=== PATIENT | female | born 1940 | race Caucasian/White ===

== ENCOUNTER 2023-11-05 08:43 | Emergency (ER) | payer MEDICARE, SELFPAY ==
--- NOTE | ~2023-11-05 | XR_ITS ---
EXAMINATION: XR ankle RT min 3V DATE: 11/05/2023 09:21 INDICATION: Right ankle pain and swelling. TECHNIQUE: 4 views of right ankle were obtained. COMPARISON: None. FINDINGS: Bone alignment is normal. No fracture. There is diffuse osteopenia. There is mild osteoarth ritis of talonavicular joint. There are enthesophytes at the posterior and plantar aspects of calcane al tuberosity. IMPRESSION: 1. No fracture. Reviewed, dictated and finalized at location A. IMPRESSION: 1. No fracture.
--- NOTE | ~2023-11-05 | CT_ITS ---
EXAMINATION: CT knee RT wo con DATE: 11/05/2023 09:46 INDICATION: Right knee pain. TECHNIQUE: Computed tomography (CT) of the right knee was performed without intravenous contrast. Aut omated exposure control and iterative reconstruction technique were employed. The dose-length product was 497.38 mGy-cm. COMPARISON: Right knee radiographs 11/05/2023 FINDINGS: There is lateral subluxation of patella. No fracture. There is severe osteoarthritis of pat ellofemoral compartment and mild osteoarthritis of medial and lateral compartments. There is a small knee joint effusion. IMPRESSION: 1. Severe right knee osteoarthritis. 2. Small right knee joint effusion. Reviewed, dictated and finalized at location A.
--- NOTE | ~2023-11-05 | XR_ITS ---
EXAMINATION: XR knee RT 3V DATE: 11/05/2023 09:21 INDICATION: Right knee swelling. TECHNIQUE: 3 views of right knee on 4 radiographs were obtained. COMPARISON: None. FINDINGS: Bone alignment is normal. No fracture. There is mild osteoarthritis of medial and lateral c ompartments and severe osteoarthritis of patellofemoral compartment. No knee joint effusion. IMPRESSION: 1. Severe right knee osteoarthritis. Reviewed, dictated and finalized at location A.
[2023-11-05 08:48] VITALS: BP 145/58; PULSE 49; RESP 16; TEMP 36.9; O2SAT 97
--- NOTE | 2023-11-05 08:58 | ED.GENADULT ---
HPI - General Adult General Chief complaint: Extremity Injury, Lower Stated complaint: lower extermity injury Time Seen by Provider: 11/05/23 08:45 History of Present Illness HPI narrative: 82-year-old female presents emergency department for evaluation for right knee pain. Patient was attempting to get in to a pickup truck yesterday, it was raining and patient has a special orthopedic shoe she wears on her right foot, this you does not have very much traction and suspect that this led to the fall. Patient hyperflexed her knee and her body weight came down on that leg. Patient does complain of some right ankle pain but primarily right knee pain. Patient denies any pain the hip. Patient denies striking head denies any loss of consciousness. Related Data Home Medications Medication Instructions Recorded Confirmed Saccharomyces boulardii 250 mg 11/05/23 11/05/23 capsule (Florastor) alprazolam 0.5 mg tablet 0.5 mg PO TID 11/05/23 11/05/23 cyanocobalamin (vitamin B-12) 3,000 mcg PO DAILY 11/05/23 11/05/23 3,000 mcg capsule furosemide 40 mg tablet (Lasix) 40 mg PO DAILY 11/05/23 11/05/23 hydralazine 10 mg tablet mg 11/05/23 lisinopril 30 mg tablet 30 mg PO DAILY 11/05/23 11/05/23 lutein 10 mg tablet 10 mg PO DAILY 11/05/23 11/05/23 metoprolol tartrate 50 mg tablet 50 mg PO BID 11/05/23 11/05/23 omeprazole 40 mg capsule,delayed 40 mg PO DAILY 11/05/23 11/05/23 release paroxetine HCl 40 mg tablet 40 mg PO QAM 11/05/23 11/05/23 potassium chloride 20 mEq 20 meq PO BID 11/05/23 11/05/23 tablet,extended release warfarin 11/05/23 Allergies Allergy/AdvReac Type Severity Reaction Status Date / Time acetaminophen Allergy Difficulty Verified 11/05/23 09:14 [From Panlor SS] Breathing bacitracin Allergy Rash Verified 11/05/23 09:14 [From Neosporin ([id number])] caffeine [From Panlor SS] Allergy Difficulty Verified 11/05/23 09:14 Breathing cetirizine [From Zyrtec] Allergy Rash Verified 11/05/23 09:14 darifenacin [From Enablex] Allergy Unknown Verified 11/05/23 09:14 dihydrocodeine Allergy Difficulty Verified 11/05/23 09:14 [From Panlor SS] Breathing doxycycline Allergy Difficulty Verified 11/05/23 09:14 Breathing duloxetine [From Cymbalta] Allergy Unknown Verified 11/05/23 09:14 fexofenadine [From Sun-D] Allergy Rash Verified 11/05/23 09:14 fluticasone Allergy Difficulty Verified 11/05/23 09:14 [From Advair Diskus] Breathing gabapentin Allergy Difficulty Verified 11/05/23 09:14 Breathing loratadine [From Claritin] Allergy Rash Verified 11/05/23 09:14 mirtazapine [From Remeron] Allergy Difficulty Verified 11/05/23 09:14 Breathing morphine Allergy Difficulty Verified 11/05/23 09:14 Breathing naproxen [From Aleve] Allergy Rash Verified 11/05/23 09:14 neomycin Allergy Rash Verified 11/05/23 09:14 [From Neosporin ([id number])] Penicillins Allergy Difficulty Verified 11/05/23 09:14 Breathing polymyxin B Allergy Rash Verified 11/05/23 09:14 [From Neosporin ([id number])] pseudoephedrine Allergy Rash Verified 11/05/23 09:14 [From Sun-D] salmeterol Allergy Difficulty Verified 11/05/23 09:14 [From Advair Diskus] Breathing Sulfa (Sulfonamide Allergy Difficulty Verified 11/05/23 09:14 Antibiotics) Breathing valdecoxib [From Bextra] Allergy Difficulty Verified 11/05/23 09:14 Breathing adhesive tape AdvReac Rash Verified 11/05/23 09:14 amlodipine [From Norvasc] AdvReac Confusion Verified 11/05/23 09:14 diphenhydramine AdvReac Drowsy Verified 11/05/23 09:14 [From Benadryl] meclizine [From Antivert] AdvReac Drowsy Verified 11/05/23 09:14 meperidine [From Demerol] AdvReac Confusion Verified 11/05/23 09:14 Review of Systems Review of Systems: All systems reviewed & are unremarkable except as noted in HPI and below Exam Narrative: APPEARANCE: Well appearing, no pain, no distress, well-nourished. HEA
[2023-11-05 09:31] VITALS: BP 129/48; PULSE 48; RESP 19; O2SAT 97
[2023-11-05 10:15] VITALS: BP 129/81; PULSE 62; RESP 19; O2SAT 98
== END 2023-11-05 10:17 | disposition home or self-care (01) ==
PROVIDERS: Emergency Provider Emergency Medicine; PCP Family Medicine
DX: S89.91XA Unspecified injury of right lower leg, initial encounter (principal); M17.11 Unilateral primary osteoarthritis, right knee; Z79.01 Long term (current) use of anticoagulants; W01.0XXA Fall on same level from slipping, tripping and stumbling without subsequent striking against object, initial encounter; X50.9XXA Other and unspecified overexertion or strenuous movements or postures, initial encounter
CPT/HCPCS: 73562; 73610; 73700; 99284

== ENCOUNTER 2024-03-27 07:17 | Outpatient (RCR) | payer MEDICARE, SELFPAY ==
[2024-01-02 11:36] VITALS: BMI 23.2
--- NOTE | 2024-02-21 11:22 | PCWOUND ---
WOCN NOTE Patients son called to cancel for today due to patient illness, He will call back to reschedule
== END 2024-04-01 23:59 | disposition home or self-care (01) ==
LOC: ANHWOC 07:17
PROVIDERS: PCP Family Medicine; Visit Provider Family Medicine
DX: S91.101D Unspecified open wound of right great toe without damage to nail, subsequent encounter (principal)
CPT/HCPCS: 99212; 99213; 99215; G0463

== ENCOUNTER 2024-08-13 07:13 | Outpatient (RCR) | payer MEDICARE, BC, SELFPAY ==
--- NOTE | 2024-08-20 10:04 | PCWOUND ---
WOCN NOTE Patient cancelled for today due to weather. Rescheduled for next week.
== END 2024-08-26 23:59 | disposition home or self-care (01) ==
LOC: ANHWOC 07:13
PROVIDERS: PCP Family Medicine; Visit Provider Family Medicine
DX: L97.509 Non-pressure chronic ulcer of other part of unspecified foot with unspecified severity (principal)
CPT/HCPCS: 99213; 99214; A9270; G0463

== ENCOUNTER 2024-11-12 07:33 | Outpatient (RCR) | payer MEDICARE, SELFPAY | END 2024-11-25 23:59 | disposition home or self-care (01) | LOC: ANHWOC 07:33 | PROVIDERS: PCP Family Medicine; Visit Provider Family Medicine | DX: L97.509 Non-pressure chronic ulcer of other part of unspecified foot with unspecified severity (principal) | CPT/HCPCS: 99213; A9270; G0463 ==

== ENCOUNTER 2024-12-02 21:46 | Emergency (ER) | payer MEDICARE, SELFPAY ==
--- NOTE | ~2024-12-02 | CT_ITS ---
EXAMINATION: CT cervical spine wo con DATE: 12/02/2024 22:53 INDICATION: FALL TECHNIQUE: Computed tomography (CT) of the cervical spine was performed without intravenous contrast. Automated exposure control and iterative reconstruction technique were employed. The dose-length pro duct was 121.01 mGy-cm. COMPARISON: None. FINDINGS: Vertebral Body Alignment: Intact. Craniocervical and atlantoaxial alignment: Moderate degenerative change. Alignment intact. Osseous structures/fracture: No evidence of a lytic or blastic process in the visualized spine. No e vidence of acute fracture. Cervical soft tissues: The paraspinal soft tissues planes are maintained. 10 x 6 x 9 mm ovoid density in the supraglottic airway, just inferior to the left vallecula, to the left of midline and above th e level of the cords, measuring approximately 80 Hounsfield units, which is greater than typical soft tissue. Degenerative changes: Multilevel degenerative disc disease and facet arthropathy. No severe central c anal or neural foraminal narrowing. IMPRESSION: No acute fracture or traumatic malalignment in the cervical spine. 10 mm supraglottic airway nodule, may represent a polyp, ingested material, or foreign body granuloma , recommend ENT referral. Reviewed, dictated and finalized at location K. IMPRESSION: No acute fracture or traumatic malalignment in the cervical spine. 10 mm supraglottic airway nodule, may represent a polyp, ingested material, or foreign body granuloma, recommend ENT referral.
--- NOTE | ~2024-12-02 | CT_ITS ---
EXAMINATION: CT brain wo con DATE: 12/02/2024 22:52 INDICATION: FALL . TECHNIQUE: Computed tomography (CT) of the head was performed without intravenous contrast. The mA wa s adjusted according to patient size. Iterative reconstruction technique was employed. The dose-lengt h product was 605.33 mGy-cm. COMPARISON: None. FINDINGS: No acute intracranial hemorrhage or extra-axial fluid collection. No hydrocephalus, mass, or herniation. No acute ischemic infarct. Unremarkable dural venous sinus attenuation. No acute osseous abnormality. Small right parietal scalp hematoma. Trace left mastoid fluid, the remaining aerated spaces are clear. Moderate atrophy and chronic white matter change. Atherosclerotic intracranial calcification. Bilater al lens replacements. IMPRESSION: No acute intracranial process. Reviewed, dictated and finalized at location K.
--- OUTSIDE RECORDS SUMMARY | 2024-12-02 21:49 | XMS_ITS | Patient Health Record ---
Author Organization [facility] Address [address] [address] [address] [place] [address] Care Team Providers Care Upholstered Goods Crafter Name Role Phone LIBERTAD BENTLEY Unavailable [phone] Reason For Referral No Information Plan Of Treatment No Information Insurance Providers Payer Name Payer Address Payer Phone Subscriber Number Group Number Insured Name Patient Relationship to Insured Coverage Start Date Coverage End Date [place]IC[place] [address] [address] [place], [place] [id number] Desiree Geller Self - patient is the insured 2 [employer] [place] [id number] [employer] [place], [place] [id number] PLAN F Desiree Geller Self - patient is the insured 0
--- OUTSIDE RECORDS SUMMARY | 2024-12-02 21:49 | XMS_ITS | CONTINUITY OF CARE DOCUMENT ---
Author Name winnie zhou Address Unknown Organization [facility] Address [address] [place] [address] [address] [place] [address] Phone [phone] Care Team Providers Care Sales Effectiveness Manager Name Role Phone Yonas HUANG, Mundo Fraser Unavailable [phone] Sally Watts MD Unavailable Sally Watts MD Unavailable [phone] INSURANCE PROVIDERS Payer name Policy type / Coverage type [place] red libertarian [employer] [place] [id number] [place] MEDICARE PART B Medicare [id number]
--- OUTSIDE RECORDS SUMMARY | 2024-12-02 21:49 | XMS_ITS | Patient Health Record ---
Author Organization [facility] Address [address] [id number] Care Team Providers Care Precision Assembly Inspector Name Role Phone Sally Watts Primary Care Provider UnavailOrlando Mcgowan Unavailable [phone] ALLERGIES Allergen (clinical drug ingredient) Drug/Non Drug Allergy documented on EMR Reaction Allergy Type Onset Date Status Tape (uncoded) Unknown Allergy Activ e mirtazapine Mirtazapine Unknown Drug Allergy Act karen Substance with sulfonamide structure and antibacterial mechanism of action (substance) sulfa drugs (uncoded) Unknown Allergy Active meperidine Meperidine HCl Unknown Drug Allergy A ctive Substance with penicillin structure and antibacterial mechanism of action (substance) penicillins (uncoded) Unknown Allergy Active meclizine Meclizine HCl Unknown Drug Allergy Act karen Vaccine product containing Influenza virus antigen (medicinal product) influenza virus vaccine (uncoded) Unknown Allergy Active loratadine Loratadine Unknown Drug Allergy Activ e bextrim (uncoded) Unknown Allergy Ac tive gabapentin Gabapentin Unknown Drug Allergy Activ e fluticasone / salmeterol Fluticasone-Salmeterol Unknown Drug Allergy Activ e fexofenadine Fexofenadine HCl Unknown Drug Allergy Active Enablex Unknown Drug Allergy Active doxycycline Doxycycline Unknown Drug Allergy Act karen diphenhydramine DiphenhydrAMINE HCl Unknown Drug Allergy Active acetaminophen Tylenol Unknown Drug Allergy Act karen duloxetine Cymbalta Unknown Drug Allergy Active cetirizine Cetirizine HCl Unknown Drug Allergy A ctive sulfamethoxazole / trimethoprim Sulfamethoxazole-Trime thoprim Unknown Drug Allergy Active sulfamethoxazole / trimethoprim Bactrim Unknown Drug Allergy Active Panlor SS Unknown Drug Allergy Active meclizine Antivert Unknown Drug Allergy Active amlodipine Norvasc Unknown Drug Allergy Active amlodipine Amlodipine Besylate Unknown Drug Allergy Active Neosporin Unknown Drug Allergy Active amiodarone Amiodarone HCl Unknown Drug Allergy A ctive naproxen Naproxen Unknown Drug Allergy Active Aleve Unknown Drug Allergy Active morphine Morphine Sulfate Unknown Drug Allergy Active REASON FOR REFERRAL No Information MEDICATIONS Medication SIG (Take, Route, Frequency, Duration) Notes Start Date End Date Status HYDROcodone-Acetaminophen 10-300 MG 1 tablet as needed Orally every 6 hrs Active Saccharomyces boulardii 250 MG 1 capsule Orally Twice a day Active PARoxetine HCl 40 MG 1 tablet in the mor eusebio Orally Once a day Active PreserVision AREDS 2 - Orally Active Metoprolol Succinate ER 50 MG 2 tablet Orally Once a day Active Cyanocobalamin 1000 MCG 1 tablet Orally Once a day Active Clindamycin HCl 150 MG 3 capsules Orally every 6 hrs Active PriLOSEC 20 MG 1 capsule Orally Onc e a day Active amLODIPine Besylate 10 MG 1 tablet Orall y Once a day Active Warfarin Sodium 5 MG 1 tablet Orally Onc e a day Active ALPRAZolam 1 MG 1/2 tablet at 8:00am ; 1 tablet at 4pm and 9pm Orally three times a day Active Sodium Bicarbonate 650 MG Orally three times a day Active hydrALAZINE HCl 50 MG 2 tablet with food Orally every 8 hours Active Fluticasone Propionate 50 MCG/ACT 1 spray in each nostril Nasally Once a day Active Ferrous Sulfate 325 (65 Fe) MG 1 tablet Orally Once a day Active IMMUNIZATIONS Vaccine Route Administration Date Status Comme nts Influenza Unknown 05/30/2017 Refused SOCIAL HISTORY Tobacco Use: Social History Observation Description Date Details (start date - stop date) Current Smoker NA - NA Sex Assigned At : Social History Observation Description Sex Assigned At Unknown Tobacco Use/Smoking Question Answer Notes You are a current smoker PROBLEMS Problem Type ICD Code Onset Dates Problem Status W/U Status Risk SNOMED Code Notes Problem Essential (primary) hypertension (I10) Active confirmed Essential hypertension (60440030) Problem Chronic kidney disease, stage 3 (moderate) (N18.3) Active confirmed Chronic kidney disease stage 3 (304339648) PLAN OF TREATMENT Future Test Test Name Order Date PTH, Intact 05/24/2017 RENAL PANEL 05/24/2017 Vitamin D, 25-Hydroxy 05/24/2017 CBC without Differential 05/24/2017 Iron and TIBC 08/30/2017 Ferritin, Serum 08/30/2017 PTH, Intact 08/30/2017 RENAL PANEL 08/30/2017 Vitamin D, 25-Hydroxy 08/30/2017 URINE PROTEIN W/CREAT RATIO 08/30/2017 CBC without Differential 08/30/2017 PTH, Intact 11/27/2017 RENAL PANEL 11/27/2017 Vitamin D, 25-Hydroxy 11/27/2017 URINE PROTEIN W/CREAT RATIO 11/27/2017 CBC without Differential 11/27/2017 Insurance Providers Payer Name Payer Address Payer Phone Subscriber Number Group Number Insured Name Patient Relationship to Insured Coverage Start Date Coverage End Date Medicare Part B [address] [place] [id number] Desiree Geller Self - patient is the insured [place] Medicare Supplement [address] [address] MEDICARE SUPPLEMENT [place] [address] [id number] Desiree Geller Self - patient is the insured MEDICAL (GENERAL) HISTORY Medical History History ICD Code neuropathy atrial fibrillation congestive heart failure hypertension osteoarthritis, depression anxiety 04/28/2017-XR Chest 1 View: Impression: Mild Cardiomegaly. No active pulmonary disease 05/04/2017: US Retroperitone al complete: Impression: Unremarkable renal ultrasound 05/05/2017: XR Chest 1 View: Impression: Cardiomegaly and some increased initial markings perhaps more prominent than previous raising a question of mild or early congestive heart failure without consolidation or definite pneumonia. Follow-up may be considered if symptoms persist. 05/05/2017: US Art/Vein ABD/ Pelvis/Scrotal: Impression: Limitation of evaluating for renal artery stenosis as the proximal origin identified but no evidence of vascular occlusion. 05/05/2017: Echocardiogram: summary: LV septal hypokinesis with overall EF 50%. Normal diastolic function. Mild mitral and tricuspid regurgitation. Mild pulmonary hypertension with estimated RVSP 42mmHg. 05/08/2017: XR Chest 1 View: Impression: Worsening diffuse infiltrates more confluent in the right apex. 05/08/2017: XR Chest 1 View: Impression: Interval right jugular double lumen central venous catheter placement without pneumothorax. Persistent right upper lobe infiltrate and pulmonary edema with bibasal atelectasis and pleural effusions, relatively unchanged. 05/05/2017: XR Chest 1 View: Impression: Significant worsening of the lungs overall appearance suggestive of congestive failure 05/12/2017: XR Chest 1 View: Impression: Pulmonary vascular congestion with bilateral pleural effusions, unchanged. Bilateral patchy infiltrates, slightly decreased in the right upper lobe. 05/10/2017: XR Chest 1 View: Impression: Right jugular central venous catheter with tip at the SVC Level is unchanged since the prior exam. Right upper lobe, right lower lobe and left lower lobe infiltrates are decreasing in density since the previous exam. Probable small right pleural effusion, stable. Cardiomegaly is stable. Mild vascular congestion is unchanged. 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
[2024-12-02 22:04] VITALS: BP 181/52; PULSE 63; RESP 16; TEMP 36.2; O2SAT 98
[2024-12-03 01:08] VITALS: BP 176/70; PULSE 56; RESP 24; O2SAT 97
--- NOTE | 2024-12-03 01:09 | ED.HEATRA ---
HPI - Head Injury General Chief complaint: Head Injury Stated complaint: Fell hit head on counter-is on Warfarin Time Seen by Provider: 12/03/24 00:54 Source: patient and family Limitations: other (hard of hearing ) History of Present Illness HPI Narrative: Patient presents after she fell and hit her head on the counter. She is on warfarn for history of afib. Concern for a laceration on R occiput part of scalp and a skin tear on her right elbow. Also had a skin tear on the left from an earlier acident on the week. Due for her next INR check soon. Hard of hearing and not wearing her hearing aid(s) so family assists. Unknown last tetanus. Related Data Home Medications ?Medication ?Instructions ?Recorded ?Confirmed ?Last Taken ?Type alprazolam 0.5 mg tablet 0.25 mg PO TID 11/05/23 01/02/24 Unknown History cyanocobalamin (vitamin B-12) 3,000 mcg PO BID 11/05/23 01/02/24 Unknown History 3,000 mcg capsule furosemide 40 mg tablet (Lasix) 40 mg PO EVERY OTHER DAY 11/05/23 01/02/24 Unknown History hydralazine 10 mg tablet 10 mg PO DAILY 11/05/23 01/02/24 Unknown History lisinopril 30 mg tablet 30 mg PO DAILY 11/05/23 01/02/24 Unknown History metoprolol tartrate 50 mg tablet 50 mg PO DAILY 11/05/23 01/02/24 Unknown History omeprazole 40 mg capsule,delayed 40 mg PO DAILY 11/05/23 01/02/24 Unknown History release paroxetine HCl 40 mg tablet 40 mg PO QAM 11/05/23 01/02/24 Unknown History potassium chloride 20 mEq 20 meq PO DAILY 11/05/23 01/02/24 Unknown History tablet,extended release fluticasone propionate 50 1 spray intranasal Q12H 01/02/24 01/02/24 Unknown History mcg/actuation nasal spray,suspension (Flonase Allergy Relief) lactobacillus combination no.8 3 3 cell PO DAILY 01/02/24 01/02/24 Unknown History billion cell capsule loratadine 10 mg tablet 10 mg PO DAILY 01/02/24 01/02/24 Unknown History vitamins A,C,H-uenw-uzxyjc 2,148 2 tablet PO BID 01/02/24 01/02/24 Unknown History mcg-113 mg-45 mg-17.4 mg tablet (PreserVision AREDS) Allergies Allergy/AdvReac Type Severity Reaction Status Date / Time bacitracin (From Neosporin Allergy Rash Verified 01/02/24 10:53 ([id number])) caffeine (From Panlor SS) Allergy Difficulty Verified 01/02/24 10:53 Breathing cetirizine (From Zyrtec) Allergy Rash Verified 01/02/24 10:53 darifenacin (From Enablex) Allergy Unknown Verified 01/02/24 10:53 dihydrocodeine (From Panlor Allergy Difficulty Verified 01/02/24 10:53 SS) Breathing doxycycline Allergy Difficulty Verified 01/02/24 10:53 Breathing duloxetine (From Cymbalta) Allergy Unknown Verified 01/02/24 10:53 fexofenadine (From Sun-D) Allergy Rash Verified 01/02/24 10:53 fluticasone (From Advair Allergy Difficulty Verified 01/02/24 10:53 Diskus) Breathing gabapentin Allergy Difficulty Verified 01/02/24 10:53 Breathing mirtazapine (From Remeron) Allergy Difficulty Verified 01/02/24 10:53 Breathing morphine Allergy Difficulty Verified 01/02/24 10:53 Breathing naproxen (From Aleve) Allergy Rash Verified 01/02/24 10:53 neomycin (From Neosporin Allergy Rash Verified 01/02/24 10:53 ([id number])) Penicillins Allergy Difficulty Verified 01/02/24 10:53 Breathing polymyxin B (From Neosporin Allergy Rash Verified 01/02/24 10:53 ([id number])) pseudoephedrine (From Allergy Rash Verified 01/02/24 10:53 Sun-D) salmeterol (From Advair Allergy Difficulty Verified 01/02/24 10:53 Diskus) Breathing Sulfa (Sulfonamide Allergy Difficulty Verified 01/02/24 10:53 Antibiotics) Breathing valdecoxib (From Bextra) Allergy Difficulty Verified 01/02/24 10:53 Breathing adhesive tape AdvReac Rash Verified 01/02/24 10:53 amlodipine (From Norvasc) AdvReac Confusion Verified 01/02/24 10:53 diphenhydramine (From AdvReac Drowsy Verified 01/02/24 10:53 Benadryl) meperidine (From Demerol) AdvReac Confusion Verified 01/02/24 10:53 [facility] Past Medical History Medical History Hearing aid worn [place] (hard of hearing) Warfarin anticoagulation Atrial fibrillation Exam Narrative: GENERAL: Well-appearing, well-nourished, and in no acute distress. HEAD: Approximately a quarter sized abrasion on right posterior scalp. Bleeding well controlled. EYES: Non injected, non icteric ENT: Nares clear, no rhinorrhea or epistaxis. Hard of hearing. NECK: Supple. No meningismus. CHEST: No respiratory distress. HEART: Regular rate ; not tachycardic or bradycardic . ABDOMEN: Soft, nondistended. No rigidity or guarding. Not peritoneal EXTREMITIES: Normal range of motion. SKIN: Warm, dry. Left elbow bandaged. Right elbow with 1cm skin tear, bleeding controlled. NEURO: No focal deficits. Alert and oriented. PSYCH: Normal mood and affect. Course Vital Signs Vital signs: Vital Signs Temperature 97.2 F L 12/02/24 22:04 Pulse Rate 63 12/02/24 22:04 Respiratory Rate 16 12/02/24 22:04 Blood Pressure 181/52 H 12/02/24 22:04 Pulse Oximetry 98 12/02/24 22:04 Oxygen Delivery Room Air 12/02/24 22:04 Temperature 97.2 F L 12/02/24 22:04 Pulse Rate 56 L 12/03/24 01:08 Respiratory Rate 24 H 12/03/24 01:08 Blood Pressure 176/70 H 12/03/24 01:08 Pulse Oximetry 97 12/03/24 01:08 Oxygen Delivery Room Air 12/02/24 22:04 MDM - Head Injury MDM Narrative Medical decision making narrative: Patient presents after falling and hitting her head on the counter. On warfarin for Afib. Concern for scalp laceration. In the emergency department she is afebrile with vital signs notable for hypertension. On exam, she has a small skin tear on right elbow and an abrasion to posterior scalp but neither are amenable to laceration repair. Scalp wound irrigated by myself vigorously, bleeding well controlled. CT imaging negative for acute process. There is incidental notation of a supraglottic lesion and patient/family are informed about this and advised on outpatient follow up with ENT for laryngoscopy/esophagoscopy. Referral given. Tetanus updated given unknown status. Patient had acetaminophen listed as an allergy but daughter confirms this can be removed as her mother takes acetaminohpen BID at baseline. Also has several other allergies. Wounds will be dressed with bacitracin here. We discussed good wound care and that antibiotic/triple antibiotic cream / ointment can be used or , alternatively, petroleum dressing, if desired. No role for prophylactic PO antibiotics and advised against hydrogen peroxide or Neosporin. Imaging Data Radiologist's impression: IMPRESSION: No acute intracranial process. IMPRESSION: No acute fracture or traumatic malalignment in the cervical spine. 10 mm supraglottic airway nodule, may represent a polyp, ingested material, or foreign body granuloma, recommend ENT referral. Discharge Plan Discharge Clinical Impression: Abnormal CT scan, neck, Fall, Skin tear of right elbow without complication, Abrasion of scalp Patient Disposition: Home Condition: Stable Instructions: Antibiotic Form, Fall Prevention for Older Adults (ED), Abrasion (ED), Skin Tear (ED) Additional Instructions: Keep your upcoming lab draw for the INR but no fracture/broken bones or bleeding in brain. Follow-up with your primary care physician. 10 mm supraglottic airway nodule, may represent a polyp, ingested material, or foreign body granuloma, recommend ENT referral. One is referred below. You can continue to take your acetaminophen that you already take twice daily but you can safely increase it to four times daily in the next few days for pain. Return to the emergency department any new, worsening, or unmanaged symptoms. Keep the wounds clean warm and dry. Avoid Neosporin or hydrogen peroxide. Your tetanus shot was updated today. Patient Language: Azeri Prescriptions: No Action furosemide [Lasix] 40 mg Tablet 40 mg PO EVERY OTHER DAY hydralazine 10 mg Tablet 10 mg PO DAILY omeprazole 40 mg Capsule,Delayed Release(Dr/Ec) 40 mg PO DAILY alprazolam 0.5 mg Tablet 0.25 mg PO TID metoprolol tartrate 50 mg Tablet 50 mg PO DAILY lisinopril 30 mg Tablet 30 mg PO DAILY paroxetine HCl 40 mg Tablet 40 mg PO QAM potassium chloride 20 mEq Tablet Extended Release 20 meq PO DAILY cyanocobalamin (vitamin B-12) 3,000 mcg Capsule 3,000 mcg PO BID fluticasone propionate [Flonase Allergy Relief] 50 mcg/actuation Cooper,Suspension 1 spray INTRANASAL Q12H Rx Instructions: administer into each nostril loratadine 10 mg Tablet 10 mg PO DAILY PreserVision AREDS 2,148 mcg-113 mg-45 mg-17.4mg Tablet 2 tablet PO BID Rx Instructions: administer with AM and PM meals Adult Probiotic 3 billion cell Capsule 3 cell PO DAILY Rx Instructions: 1 tablet daily by mouth Follow-up/Referrals: Scott Frazier MD [Physician] - Srinivasan,Hood Weller MD [Primary Care Provider] - Time of Disposition: 01:26
[2024-12-03] MEDS: TETANUS,DIPHTHERIA,AC PERTUSSIS ADULT (0.5 ML) BOOSTRIX IM (01:23)
[2024-12-03] MEDS: ACETAMINOPHEN 325 MG TABLET 650 MG PO (01:27)
--- OUTSIDE RECORDS SUMMARY | 2024-12-03 01:27 | XMS_ITS | CONTINUITY OF CARE DOCUMENT ---
Author Name winnie zhou Address Unknown Organization [facility] Address [address] [place] [address] [address] [place] [address] Phone [phone] Care Team Providers Care Manager Of Customer Billing Name Role Phone Yonas HUANG, Mundo Fraser Unavailable [phone] Sally Watts MD Unavailable Sally Watts MD Unavailable [phone] INSURANCE PROVIDERS Payer name Policy type / Coverage type [place] red [id number] [id number] MED[place] PART B Medicare [id number]
--- OUTSIDE RECORDS SUMMARY | 2024-12-03 01:27 | XMS_ITS | Patient Health Record ---
Author Organization [facility] Address [address] [id number] Care Team Providers Care Program Director/Morning Show Host Name Role Phone Sally Watts Primary Care Provider UnavailOrlando Mcgowan Unavailable [phone] ALLERGIES Allergen (clinical drug ingredient) Drug/Non Drug [...] (primary) hypertension (I10) Active confirmed Essential hypertension (27426119) Problem Chronic kidney disease, stage 3 (moderate) (N18.3) Active confirmed Chronic kidney disease stage 3 (710886933) PLAN OF TREATMENT Future Test Test Name [...] Part B [address] [place] [id number] Desiree Geller Self - patient is the insured [place] Medicare Supplement [address] [address] MEDICARE [place] [address] [id number] Desiree Geller Self - patient is the [...] Hospitalization History Reason Date(Month/Year) Infected right plantar ulcer-[place] 1 -05/17/2017
--- NOTE | 2024-12-03 02:06 | PC.NURSE ---
wound are done,bilateral elbows
== END 2024-12-03 02:06 | disposition home or self-care (01) ==
PROVIDERS: Emergency Provider Student in an Organized Health Care Education/Training Program; PCP Family Medicine
DX: S51.011A Laceration without foreign body of right elbow, initial encounter (principal); S00.01XA Abrasion of scalp, initial encounter; R93.89 Abnormal findings on diagnostic imaging of other specified body structures; I48.91 Unspecified atrial fibrillation; Z79.01 Long term (current) use of anticoagulants; W19.XXXA Unspecified fall, initial encounter; Z23 Encounter for immunization
CPT/HCPCS: 70450; 72125; 90471; 90715; 99284; A9270